=== PATIENT | female | born 1965 | race Caucasian/White ===

== ENCOUNTER 2018-09-09 00:44 | Inpatient (IN) | payer OTHER ==
[2018-09-09] MEDS ORDERED: NS 1,000 ML IV ONE ×2 (00:54→02:41)
--- NOTE | 2018-09-09 00:54 | EDPHY ---
H & P Time Seen by Provider: 09/09/18 00:54 HPI/ROS: HPI CHIEF COMPLAINT: Left-sided abdominal pain. HISTORY OF PRESENT ILLNESS: 52-year-old female, presents to the emergency room by private vehicle with family for left-sided abdominal pain. Patient's predominant pain left lower quadrant. Does have some left flank pain associated with this. Nausea but no vomiting. Denies any urinary symptoms denies chest pain or shortness of breath denies fever. The symptoms started abruptly at 8:30 p.m.. Denies any chest pain or shortness of breath. Pain is 8 /10 left lower quadrant she describes it as squeezing sensation. Of note this patient is predominantly Yakut-speaking only she was offered translator and interpreter however she declined her son translate at bedside. Past Medical History: Diabetes Past Surgical History: x4 Social History: Denies drugs alcohol tobacco. Family History: Noncontributory ROS REVIEW OF SYSTEMS: 10 Systems were reviewed and negative with the exception of the elements mentioned in the history of present illness. Exam Constitutional nontoxic no acute distress triage nursing summary reviewed, vital signs reviewed, awake/alert. Vital signs stable Eyes normal conjunctivae and sclera, EOMI, PERRLA. HENT normal inspection, atraumatic, moist mucus membranes, no epistaxis, neck supple/ no meningismus, no raccoon eyes. Respiratory clear to auscultation bilaterally, normal breath sounds, no respiratory distress, no wheezing. Cardiovascular rate normal, regular rhythm, no murmur, no edema, distal pulses normal. Gastrointestinal mild tender palpation left lower quadrant, no rebound, no guarding, normal bowel sounds, no distension, no pulsatile mass. Genitourinary no CVA tenderness. Musculoskeletal no midline vertebral tenderness, full range of motion, no calf swelling, no tenderness of extremities, no meningismus, good pulses, neurovascularly intact. Skin pink, warm, & dry, no rash, skin atraumatic. Neurologic awake, alert and oriented x 3, AAOx3, moves all 4 extremities equally, motor intact, sensory intact, CN II-XII intact, normal cerebellar, normal vision, normal speech. Psychiatric normal mood/affect. Heme/Lymph/Immune no lymphadenopathy. Differential Diagnosis: Differential diagnosis includes but is not limited to and in no particular order: Bowel obstruction, appendicitis, gallbladder disease, diverticulitis, colitis, enteritis, perforated viscus, gastritis, GERD , esophagitis, urinary tract infection, pyelonephritis, kidney stones Medical Decision Making: Plan for this patient IV establishment IV fluid bolus , IV Dilaudid 1 mg for pain control IV Zofran 4 mg for nausea, gentle IV fluids , CT scan abdomen pelvis with IV contrast to help delineate this left lower quadrant abdominal pain. Re-evaluation: 0242: Labs reviewed, patient has had vomiting x2 here in the emergency room. Patient is order 2nd L of normal saline. Additionally the patient has had 8 mg of IV Zofran. Plan for 6.25 of Phenergan for nausea control. CT scan abdomen pelvis with IV contrast results back to me by direct Radiology at 2:35 a.m., the CT scan abdomen pelvis with IV contrast shows mild wall thickening of the distal transverse descending and proximal sigmoid colon may reflect mild colitis. Additionally low density in the endometrial cavity presumably physiologic. The patient is not postmenopausal and still has menses. Given the patient's abdominal pain and CT scan findings concerning for colitis with ongoing nausea vomiting in emergency room she will be admitted to the hospital. I have ordered the patient a 2nd L fluid and Phenergan. Additionally the patient was given Dilaudid for pain control. IV Cipro and IV Flagyl order for colitis The patient is not been on any recent antibiotics. She has not had any diarrhea She is afebrile here nontoxic appearing She agrees for hospital admission. Spoke with the hospitalist service at 2:[address] Carlson, Agrees for admission. Source: Patient Constitutional: Initial Vital Signs Temperature (C) 36.8 C 09/09/18 00:56 Heart Rate 93 09/09/18 00:56 Respiratory Rate 18 09/09/18 00:56 Blood Pressure 153/79 H 09/09/18 00:56 O2 Sat (%) 95 09/09/18 00:56 O2 Delivery Mode Room Air Allergies/Adverse Reactions: No Known Allergies Allergy (Verified 09/09/18 09:40) Home Medications: Medication Instructions Recorded Amitriptyline HCl [Elavil 25 mg 25 mg PO HS 09/09/18 (RX)] Herbals/Supplements -Info Only 1 ea PO DAILY 09/09/18 Ibuprofen [Motrin (*)] 200 mg PO DAILY PRN 09/09/18 Linagliptin [Tradjenta] 5 mg PO DAILY 09/09/18 glipiZIDE XL [Glucotrol XL 10 MG 10 mg PO DAILY 09/09/18 (*)] metFORMIN HCL [Glucophage 1000 mg] 1,000 mg PO BIDMEAL 09/09/18 Medical Decision Making - Data Points Laboratory Results: Laboratory Results 09/09/18 01:00 09/09/18 01:00 Medications Given: Amitriptyline HCl (Elavil) 25 mg PO HS [facility] Stop: 03/08/19 20:59 Last Admin: 09/09/18 21:24 Dose: 25 mg Enoxaparin Sodium (Lovenox) 40 mg SC DAILY [facility] Stop: 03/08/19 08:59 Last Admin: 09/09/18 08:52 Dose: 40 mg Glipizide (Glucotrol Xl) 10 mg PO DAILY [facility] Stop: 03/08/19 13:14 Last Admin: 09/09/18 14:22 Dose: Not Given Hydromorphone HCl (Dilaudid) 0.4 mg IVP Q2HRS PRN PRN Reason: Pain, Severe Unable to Take PO Stop: 09/19/18 02:49 Last Admin: 09/09/18 21:23 Dose: 0.4 mg Sodium Chloride (Ns) 1,000 mls @ 100 mls/hr IV CONT [facility] Stop: 03/08/19 02:59 Last Admin: 09/09/18 21:24 Dose: 1,000 mls Insulin Human Lispro (Humalog Lispro) 0 unit SC Q6H [facility] PRN Reason: Protocol Stop: 03/08/19 13:14 Last Admin: 09/09/18 13:43 Dose: Not Given Ketorolac Tromethamine (Toradol) 15 mg IVP Q6HRS [facility] Stop: 09/14/18 09:44 Last Admin: 09/09/18 17:10 Dose: 15 mg Miscellaneous Medication (Linagliptin [Tradjenta]) 5 mg PO DAILY [facility] Stop: 03/08/19 13:14 Last Admin: 09/09/18 14:18 Dose: Not Given Ondansetron HCl (Zofran) 4 mg IVP Q4HRS PRN PRN Reason: Nausea/Vomiting, Can't Take PO Stop: 03/08/19 02:46 Last Admin: 09/09/18 21:24 Dose: 4 mg Oxycodone HCl (Oxycodone Ir) 5 - 10 mg PO Q4HRS PRN PRN Reason: Pain, Severe Able to Take PO Stop: 09/19/18 02:49 Last Admin: 09/09/18 18:58 Dose: 5 mg Promethazine HCl (Phenergan) 6.25 - 12.5 mg IVP Q6HRS PRN PRN Reason: Nausea/Vomiting, Use 2nd Stop: 03/08/19 02:46 Last Admin: 09/09/18 04:40 Dose: 6.25 mg Discontinued Medications Hydromorphone HCl (Dilaudid) 1 mg IVP EDNOW ONE Stop: 09/09/18 01:00 Last Admin: 09/09/18 01:04 Dose: 1 mg Hydromorphone HCl (Dilaudid) 1 mg IVP EDNOW ONE Stop: 09/09/18 02:10 Last Admin: 09/09/18 02:13 Dose: 1 mg Sodium Chloride (Ns) 1,000 mls @ 0 mls/hr IV EDNOW ONE; Wide Open PRN Reason: Protocol Stop: 09/09/18 00:55 Last Admin: 09/09/18 01:05 Dose: 1,000 mls Sodium Chloride (Ns) 1,000 mls @ 0 mls/hr IV ONCE ONE PRN Reason: Wide Open Stop: 09/09/18 02:42 Last Admin: 09/09/18 02:44 Dose: 1,000 mls Ciprofloxacin/Dextrose (Cipro 400 Mg (Premix)) 200 mls @ 200 mls/hr IV EDNOW ONE PRN Reason: Protocol Stop: 09/09/18 03:40 Last Admin: 09/09/18 03:47 Dose: 200 mls Metronidazole/Sodium Chloride (Flagyl 500 Mg (Premix)) 100 mls @ 100 mls/hr IV EDNOW ONE PRN Reason: Protocol Stop: 09/09/18 03:40 Last Admin: 09/09/18 02:48 Dose: 100 mls Ondansetron HCl (Zofran) 4 mg IVP EDNOW ONE Stop: 09/09/18 01:00 Last Admin: 09/09/18 01:04 Dose: 4 mg Ondansetron HCl (Zofran) 4 mg IVP EDNOW ONE Stop: 09/09/18 02:10 Last Admin: 09/09/18 02:13 Dose: 4 mg Promethazine HCl (Phenergan) 6.25 mg IVP ONCE ONE Stop: 09/09/18 02:42 Last Admin: 09/09/18 02:44 Dose: 6.25 mg Departure - Departure Disposition: [facility] Inpatient Acute Clinical Impression: Colitis Abdominal pain Qualifiers: Abdominal location: left lower quadrant Qualified Code(s): R10.32 - Left lower quadrant pain Condition: Good
[2018-09-09] MEDS ORDERED: HYDROmorphONE/DILAUDID 2 MG/ML INJ IVP ONE ×2 (00:59→02:09)
[2018-09-09] MEDS ORDERED: ONDANSETRON 4 MG/2 ML VIAL IVP ONE ×2 (00:59→02:09)
[2018-09-09 01:07] LABS: PLATELET COUNT 251 10^3/uL (150-400)
[2018-09-09] MEDS ORDERED: IOHEXOL 350mgI/ML (OMNIPAQUE) 150 ML BTL IV ONE (01:44)
[2018-09-09] MEDS ORDERED: PROMETHAZINE HCL 25 MG/ML INJ IVP ONE (02:41)
[2018-09-09] MEDS ORDERED: CIPROFLOXACIN 400 MG/DEXTROSE 200 ML IV ONE (02:41)
[2018-09-09] MEDS ORDERED: PROMETHAZINE HCL 25 MG/ML INJ ONE (02:42)
[2018-09-09] MEDS ORDERED: PROMETHAZINE HCL 25 MG/ML INJ IVP PRN (02:47)
[2018-09-09] MEDS ORDERED: ONDANSETRON DISINTEGRATING 4 MG TAB PO PRN (02:47)
--- NOTE | 2018-09-09 03:18 | PDGENHP ---
History and Physical - Chief Complaint Abdominal pain - History of Present Illness 52 yo F w/ DM presents with abdominal pain. The patient developed LLQ abdominal pain starting around 8 PM yesterday. She denies recent antibiotics or suspicious food intake. Several family members had viral illnesses but these were a few weeks ago. She developed vomiting as well in the ED but no diarrhea or evidence of bleeding. Her CT scan demonstrates mild colitis; lactate is normal. She continues to be in severe pain despite high doses of opiates. She is being admitted for further evaluation. Case discussed with ED physician Dr. Pratt; records reviewed and summarized above. History Information - Allergies/Home Medication List Allergies/Adverse Reactions: No Known Allergies Allergy (Unverified 09/09/18 00:55) Home Medications: Metformin HCl 09/09/18 [Last Taken Unknown] I have personally reviewed and updated: family history, medical history - Past Medical History diabetes type 2 - Surgical History Additional surgical history: - Family History Additional family history: Denies - Social History Smoking Status: Never smoked Review of Systems Review of Systems: ROS: 10pt was reviewed & negative except for what was stated in HPI & below Physical Exam Physical Exam: Temp Pulse Resp BP Pulse Ox 36.8 C 94 16 156/96 H 92 09/09/18 00:56 09/09/18 02:15 09/09/18 02:15 09/09/18 02:15 09/09/18 02:15 Constitutional: obese, uncomfortable Eyes: PERRL, EOMI Ears, Nose, Mouth, Throat: moist mucous membranes, no oral mucosal ulcers Cardiovascular: regular rate and rhythym, no murmur, rub, or gallop Respiratory: no respiratory distress, clear to auscultation Gastrointestinal: tenderness (LLQ), No guarding, No rebound, No distension Skin: warm, normal color Musculoskeletal: full muscle strength, no muscle tenderness Neurologic: AAOx3, CN II-XII Intact Psychiatric: interacting appropriately, not anxious (v) Lab Data & Imaging Review 09/09/18 01:00 09/09/18 01:00 WBC 11.66 10^3/uL (3.80-9.50) H 09/09/18 01:00 RBC 4.29 10^6/uL (4.18-5.33) 09/09/18 01:00 Hgb 12.2 g/dL (12.6-16.3) L 09/09/18 01:00 Hct 36.4 % (38.0-47.0) L 09/09/18 01:00 MCV 84.8 fL (81.5-99.8) 09/09/18 01:00 MCH 28.4 pg (27.9-34.1) 09/09/18 01:00 MCHC 33.5 g/dL (32.4-36.7) 09/09/18 01:00 RDW 13.0 % (11.5-15.2) 09/09/18 01:00 Plt Count 251 10^3/uL (150-400) 09/09/18 01:00 MPV 10.0 fL (8.7-11.7) 09/09/18 01:00 Neut % (Auto) 74.3 % (39.3-74.2) H 09/09/18 01:00 Lymph % (Auto) 18.2 % (15.0-45.0) 09/09/18 01:00 [place] % (Auto) 5.6 % (4.5-13.0) 09/09/18 01:00 Eos % (Auto) 1.2 % (0.6-7.6) 09/09/18 01:00 Baso % (Auto) 0.3 % (0.3-1.7) 09/09/18 01:00 Nucleat RBC Rel Count 0.0 % (0.0-0.2) 09/09/18 01:00 Absolute Neuts (auto) 8.67 10^3/uL (1.70-6.50) H 09/09/18 01:00 Absolute Lymphs (auto) 2.12 10^3/uL (1.00-3.00) 09/09/18 01:00 Absolute Monos (auto) 0.65 10^3/uL (0.30-0.80) 09/09/18 01:00 Absolute Eos (auto) 0.14 10^3/uL (0.03-0.40) 09/09/18 01:00 Absolute Basos (auto) 0.03 10^3/uL (0.02-0.10) 09/09/18 01:00 Absolute Nucleated RBC 0.00 10^3/uL (0-0.01) 09/09/18 01:00 Immature Gran % 0.4 % (0.0-1.1) 09/09/18 01:00 Immature Gran # 0.05 10^3/uL (0.00-0.10) 09/09/18 01:00 VBG Lactic Acid 1.8 mmol/L (0.7-2.1) 09/09/18 02:55 Sodium 134 mEq/L (135-145) L 09/09/18 01:00 Potassium 4.3 mEq/L (3.5-5.2) 09/09/18 01:00 Chloride 102 mEq/L (97-110) 09/09/18 01:00 Carbon Dioxide 22 mEq/l (22-31) 09/09/18 01:00 Anion Gap 10 mEq/L (6-14) 09/09/18 01:00 BUN 11 mg/dL (7-23) 09/09/18 01:00 Creatinine 0.6 mg/dL (0.6-1.0) 09/09/18 01:00 Estimated GFR > 60 09/09/18 01:00 Glucose 259 mg/dL (70-100) H 09/09/18 01:00 Calcium 9.3 mg/dL (8.5-10.4) 09/09/18 01:00 Total Bilirubin 0.4 mg/dL (0.1-1.4) 09/09/18 01:00 Conjugated Bilirubin 0.2 mg/dL (0.0-0.5) 09/09/18 01:00 Unconjugated Bilirubin 0.2 mg/dL (0.0-1.1) 09/09/18 01:00 AST 20 IU/L (14-46) 09/09/18 01:00 ALT 27 IU/L (9-52) 09/09/18 01:00 Alkaline Phosphatase 99 IU/L (38-126) 09/09/18 01:00 Total Protein 7.6 g/dL (6.3-8.2) 09/09/18 01:00 Albumin 4.2 g/dL (3.5-5.0) 09/09/18 01:00 Lipase 91 IU/L (23-300) 09/09/18 01:00 Beta HCG, Qual NEGATIVE 09/09/18 01:00 Urine Color YELLOW 09/09/18 01:05 Urine Appearance CLEAR 09/09/18 01:05 Urine pH 6.0 (5.0-7.5) 09/09/18 01:05 Ur Specific [place] 1.017 (1.002-1.030) 09/09/18 01:05 Urine Protein NEGATIVE (NEGATIVE) 09/09/18 01:05 Urine Ketones 1+ (NEGATIVE) H 09/09/18 01:05 Urine Blood NEGATIVE (NEGATIVE) 09/09/18 01:05 Urine Nitrate NEGATIVE (NEGATIVE) 09/09/18 01:05 Urine Bilirubin NEGATIVE (NEGATIVE) 09/09/18 01:05 Urine Urobilinogen NEGATIVE EU (0.2-1.0) 09/09/18 01:05 Ur Leukocyte Esterase NEGATIVE (NEGATIVE) 09/09/18 01:05 Urine RBC 1-3 /hpf (0-3) 09/09/18 01:05 Urine WBC 1-3 /hpf (0-3) 09/09/18 01:05 Ur Epithelial Cells TRACE /lpf (NONE-1+) 09/09/18 01:05 Urine Glucose 3+ (NEGATIVE) H 09/09/18 01:05 Imaging Review: CT A/P Prelim: Suspicious for colitis; no free air; normal appendix Assessment & Plan Assessment: 52 yo F w/ DM presents with abdominal pain. Plan: 1. LLQ pain - CT abdomen/pelvis (personally reviewed/interpreted) possibly consistent with mild colitis. Her UA is unremarkable and lactate WNL. Her abdominal exam is reassuring although she is still complaining of significant pain despite high doses of narcotics. - Admit for observation - S/p Cipro/Flagyl in ED; will observe off of further antibiotics - Pain control, anti-emetics PRN - Clear liquid diet, ADAT - GI PCR if diarrhea develops, none currently - If not improving, pelvic ultrasound may be reasonable 2. NIDDM - On metformin and one other oral agent as outpatient but does not remember the name. She is hyperglycemic on admission. - Continue oral medications pending reconciliation Diet - Clears, mIVF, ADAT Code - Full Ppx - LMWH Dispo - Admit under observation status
[2018-09-09] MEDS: NS 1,000 ML IV SCH ×2 (04:40→21:24)
[2018-09-09] MEDS: HYDROmorphONE/DILAUDID 1 MG/ML INJ IVP PRN ×5 (04:40→21:23)
[2018-09-09] MEDS: ONDANSETRON 4 MG/2 ML VIAL IVP PRN ×3 (08:51→21:24)
[2018-09-09] MEDS: ENOXAPARIN 40 MG/0.4 ML SYR SC SCH (08:52)
[2018-09-09] MEDS: KETOROLAC 15 MG/1 ML SDV IVP SCH ×3 (09:55→17:10)
[2018-09-09] MEDS ORDERED: D50W 25 GM/50 ML SYR IVP PRN (13:04)
--- NOTE | 2018-09-09 13:26 | HOSPPROG ---
Hospitalist Progress Note Assessment/Plan: LLQ pain - CT abdomen/pelvis (personally reviewed/interpreted) shows mild colitis. UA is unremarkable, lactate nl. Exam is reassuring. No fevers. Query infectious colitis with associated vomiting, ?viral. - monitor off atbx - GI PCR if she has diarrhea - Pain control, anti-emetics PRN - check pelvic us, ?adenomyosis, likely plan for outpt OUTSOLE TACKER referral NIDDM - Hold MTF with recent IV contrast - SSI for now Diet - Clears, IVF's Code - Full Ppx - LMWH Dispo - Obs Subjective: Pt continues to c/o LLQ abdominal pain. REports vomiting this am. Tolerating clears since then. No fevers/chills. No diarrhea. Objective: Vital Signs Temp Pulse Resp BP Pulse Ox 36.7 C 89 18 136/67 H 94 09/09/18 08:00 09/09/18 08:00 09/09/18 08:00 09/09/18 08:00 09/09/18 08:00 09/08/18 09/09/18 09/10/18 05:59 05:59 05:59 Intake Total 3347 Output Total 100 Balance 3247 - Physical Exam Constitutional: no apparent distress Eyes: PERRL Ears, Nose, Mouth, Throat: moist mucous membranes Cardiovascular: regular rate and rhythym Respiratory: no respiratory distress, clear to auscultation Gastrointestinal: other (soft, nd, mild TTP LLQ, no r/r/g, +BS) Skin: warm Musculoskeletal: full muscle strength Neurologic: AAOx3 Psychiatric: interacting appropriately ICD10 Worksheet Patient Problems: Problems Problem Status Onset Abdominal pain Acute Colitis Acute
--- NOTE | 2018-09-09 13:41 | ASMTCMCOM ---
CM Note CM Note Notes: Pt is a 52 yo albanian speaking F who presents with abdominal pain, colitis. Pt has [employer]. Pt's daughter is supportive. [employer] met with her this morning, informed CM that pt would not have outpatient coverage. No therapies ordered at this time. CM to follow as pt progresses. Plan: TBD Date Signed: 09/09/2018 01:41 PM Electronically Signed By:GLORIA Carpio
[2018-09-09] MEDS: INSULIN LISPRO 100 UNIT/ML SC SCH (13:43)
[2018-09-09] MEDS: oxyCODONE IR 5 MG TAB PO PRN ×2 (18:10→18:58)
[2018-09-09] MEDS: AMITRIPTYLINE HCL 25 MG TAB PO SCH (21:24)
[2018-09-10] MEDS: KETOROLAC 15 MG/1 ML SDV IVP SCH ×4 (00:35→17:30)
[2018-09-10] MEDS: INSULIN LISPRO 100 UNIT/ML SC SCH ×6 (01:05→21:53)
[2018-09-10 05:23] LABS: PLATELET COUNT 237 10^3/uL (150-400)
[2018-09-10] MEDS: NS 1,000 ML IV SCH ×2 (07:03→17:31)
--- NOTE | 2018-09-10 08:20 | HOSPPROG ---
Hospitalist Progress Note Assessment/Plan: LLQ pain - CT abdomen/pelvis showed mild colitis. UA unremarkable, lactate nl. Exam is reassuring. No fevers. Query infectious colitis with associated vomiting, ?viral. Pt still unable to tolerate po. Pelvic u/s with cysts, possibly adenomyosis. - cont to monitor off atbx - GI PCR if she has diarrhea - Pain control, anti-emetics PRN - outpt POST OFFICE MANAGER referral NIDDM - Holding MTF with recent IV contrast - SSI for now Diet - Clears as tolerated, cont IVF's until taking better po Code - Full Ppx - LMWH Dispo - Change to inpt as still unable to tolerate po, d/c when able to eat Subjective: Pt feels a little better today, less pain, but still not tolerating po. Vomited last night after trying chicken soup. No fevers. Denies vaginal discharge or diarrhea. Objective: Vital Signs Temp Pulse Resp BP Pulse Ox 37.1 C 87 16 108/61 91 L 09/10/18 07:37 09/10/18 07:37 09/10/18 07:37 09/10/18 07:37 09/10/18 07:37 Laboratory Results 09/10/18 04:53 09/09/18 09/10/18 09/11/18 05:59 05:59 05:59 Intake Total 3347 850 Output Total 100 Balance 3247 850 - Physical Exam Constitutional: no apparent distress Eyes: PERRL Ears, Nose, Mouth, Throat: moist mucous membranes Cardiovascular: regular rate and rhythym Respiratory: no respiratory distress, clear to auscultation Gastrointestinal: normoactive bowel sounds, soft, non-tender abdomen Skin: warm Musculoskeletal: full muscle strength Neurologic: AAOx3 Psychiatric: interacting appropriately ICD10 Worksheet Patient Problems: Problems Problem Status Onset Abdominal pain Acute Colitis Acute
[2018-09-10] MEDS: ENOXAPARIN 40 MG/0.4 ML SYR SC SCH (09:19)
[2018-09-10] MEDS: ACETAMINOPHEN 325 MG TAB PO PRN ×3 (10:41→21:32)
--- NOTE | 2018-09-10 13:51 | ASMTCMCOM ---
CM Note CM Note Notes: Due to no therapies ordered and patient having [employer] as insurance coverage which does not cover outpatient care, patient will likely discahrge independent. CM available if d/c needs change. Date Signed: 09/10/2018 01:50 PM Electronically Signed By:Nancy Paniagua LCSW
[2018-09-10] MEDS: AMITRIPTYLINE HCL 25 MG TAB PO SCH (21:32)
[2018-09-11] MEDS: KETOROLAC 15 MG/1 ML SDV IVP SCH ×4 (00:10→17:48)
[2018-09-11] MEDS: INSULIN LISPRO 100 UNIT/ML SC SCH ×4 (08:13→20:38)
[2018-09-11] MEDS: NS 1,000 ML IV SCH (08:13)
[2018-09-11] MEDS: ENOXAPARIN 40 MG/0.4 ML SYR SC SCH (08:15)
[2018-09-11] MEDS: ACETAMINOPHEN 325 MG TAB PO PRN (08:25)
--- NOTE | 2018-09-11 09:03 | HOSPPROG ---
Hospitalist Progress Note Assessment/Plan: LLQ pain - CT abdomen/pelvis showed mild colitis. UA unremarkable, lactate nl. Exam is reassuring. No fevers. Suspect infectious colitis with associated vomiting, ?viral. Pt still not tolerating much po. No diarrhea, so GI PCR has not been sent. Pelvic u/s with cysts, possibly adenomyosis, though doubt this is cause of acute illness. - cont to monitor off atbx - GI PCR if she has diarrhea - Pain control, anti-emetics PRN - diet as tolerated - GI consulted, may warrant colonoscopy since she is not improving with conservative management. Discussed with Dr. Griffin. NIDDM - Holding MTF with recent IV contrast - SSI for now Diet - Diet as tolerated, cont IVF's until taking better po Code - Full Ppx - LMWH Dispo - Cont inpt, d/c when able to eat Subjective: Pt continues to c/o 6/10 LLQ pain. Took some broth and sips of water without vomiting, but reports increased pain after eating. No fevers. No diarrhea. No urinary symptoms. Objective: Vital Signs Temp Pulse Resp BP Pulse Ox 36.7 C 77 16 122/82 H 95 09/11/18 07:56 09/11/18 07:56 09/10/18 23:44 09/11/18 07:56 09/11/18 07:56 Laboratory Results 09/10/18 04:53 09/10/18 09/11/18 09/12/18 05:59 05:59 05:59 Intake Total 850 800 136 Balance 850 800 136 - Physical Exam Constitutional: no apparent distress Eyes: PERRL Ears, Nose, Mouth, Throat: moist mucous membranes Cardiovascular: regular rate and rhythym Respiratory: no respiratory distress, clear to auscultation Gastrointestinal: other (soft, nd, +LLQ ttp, no r/r/g, +BS) Skin: warm Musculoskeletal: full muscle strength Neurologic: AAOx3 Psychiatric: interacting appropriately ICD10 Worksheet Patient Problems: Problems Problem Status Onset Abdominal pain Acute Colitis Acute
--- NOTE | 2018-09-11 10:47 | PDMN ---
Medical Necessity Medical necessity: Pt meets inpt criteria per MD order and MCG M-05, Abdominal Pain, Undiagnosed. 52 y/o admitted w/LLQ pain, possibly consistent w/colitis. Upgraded to inpt for persistent abd pain- receiving IV Tordol and IV Dilaudid, not tolerationg PO, still needing IV antiemetics. Anticipate>2MN for ongoing eval/management of above.
[2018-09-11] MEDS ORDERED: PEG 3350/NA SULF,BICARB,CL/KCL (GAVILYTE-G) 4000 ML BTL PO ONE ×2 (11:14→18:15)
--- NOTE | 2018-09-11 11:51 | GCON ---
[f rep st] CONSULTATION GI CONSULTATION DATE OF CONSULTATION: 09/11/2018 REQUESTING PHYSICIAN: Shannan Hernández MD REASON FOR CONSULTATION: Left lower quadrant abdominal pain with abnormal CT scan of the left colon. HISTORY OF PRESENT ILLNESS: The patient is a 52-year-old female who was admitted to the hospital yesterday with severe left lower quadrant abdominal pain that started 24 hours prior to admission. She denied any recent antibiotic use or suspicious food ingestion. There were several family members who had viral syndromes in the prior week. She denied any diarrhea or blood in the stool. She did develop nausea and vomiting. CT scan of the abdomen was performed on admission, which revealed borderline thickening of the transverse colon and the sigmoid colon consistent with colitis. There was no evidence of appendicitis, bowel obstruction, or abscess. There was nonspecific cystic abnormality of the uterus. The patient has had no bowel movement since admission but continues to have persistent left-sided abdominal pain, and therefore, I was consulted for further evaluation. HOME MEDICATIONS: Metformin. ALLERGIES: No known drug allergies. PAST MEDICAL HISTORY: Significant for type 2 diabetes mellitus. PAST SURGICAL HISTORY: Significant for . FAMILY HISTORY: Negative for GI malignancies, peptic ulcer disease, or inflammatory bowel disease. SOCIAL HISTORY: She is . She lives in [place] with her daughter. She does not smoke tobacco or drink alcohol. COMPREHENSIVE REVIEW OF SYSTEMS: Negative for 10 systems other than noted in the HPI. EXAMINATION: VITAL SIGNS: Temperature 36.7, pulse 77, regular, blood pressure 122/82, respiratory rate was 16, O2 saturation 95% on room air. GENERAL: A well-developed, well-nourished female in moderate distress lying on her right side curled up into a ball. INTEGUMENT: Clear. HEENT: Head atraumatic, normocephalic. Pupils equal, round, reactive to light. EOMs intact. Sclerae nonicteric. Mucous membranes good. Dentition fair. NECK: Supple. Trachea midline. LYMPHATICS: No cervical or axillary adenopathy palpated. PULMONARY: Lungs clear to percussion and auscultation. CARDIOVASCULAR: Regular rhythm, rate. Normal S1, S2 without murmur. Peripheral pulses strong bilaterally. No pedal edema. ABDOMEN: Mildly distended. Positive bowel sounds. No liver, spleen tip palpable. There was marked tenderness to deep palpation in the left upper and left lower quadrants without palpable mass or rebound. EXTREMITIES: Without deformity. NEURO: Patient was alert and oriented x3. There were no focal neurologic deficits. LABS: White count 11.66. White count yesterday 8.26. Hemoglobin yesterday 11.0, hematocrit 34.0, platelets 237,000. Glucose 125. Urinalysis was negative. CT scan of the abdomen as noted above. IMPRESSION: 1. Left lower quadrant abdominal pain of unclear etiology without diarrhea with thickening of the left colon noted. Rule out ischemic colitis. Rule out infectious colitis. 2. Type 2 diabetes mellitus. RECOMMENDATIONS: 1. Clear liquid diet. 2. Colyte prep. 3. Total colonoscopy tomorrow a.m. with Dr. Sofia. /[id number]/MODL MTDD
--- NOTE | 2018-09-11 15:15 | ASMTCMCOM ---
CM Note CM Note Notes: Discharge plan remains independent at this time as patient only has [employer]. CM available for consult. Date Signed: 09/11/2018 03:14 PM Electronically Signed By:Nancy Paniagua LCSW
[2018-09-11] MEDS: AMITRIPTYLINE HCL 25 MG TAB PO SCH (21:55)
[2018-09-12] MEDS: KETOROLAC 15 MG/1 ML SDV IVP SCH ×3 (00:05→12:34)
[2018-09-12] MEDS: NS 1,000 ML IV SCH ×2 (05:44→12:32)
[2018-09-12] MEDS ORDERED: LR 1,000 ML IV ONE (10:28)
--- NOTE | 2018-09-12 10:29 | PDANEPAE ---
ANE History of Present Illness Left lower abd pain ANE Past Medical History - Cardiovascular History Hx Hypertension: No Hx Arrhythmias: No - Pulmonary History Hx Asthma/Reactive Airway Disease: No Hx Oxygen in Use at Home: No Hx Sleep Apnea: No Sleep Apnea Screening Result - Last Documented: Negative - Endocrine History Hx Diabetes: Yes ANE Review of Systems Review of Systems: ANE Patient History - Allergies Allergies/Adverse Reactions: No Known Allergies Allergy (Verified 09/09/18 09:40) - Home Medications Home medications: home medication list seen and reviewed Home Medications: Amitriptyline HCl [Elavil 25 mg (RX)] 25 mg PO HS 09/09/18 [Last Taken 09/07/18] Herbals/Supplements -Info Only 1 ea PO DAILY 09/09/18 [Last Taken Unknown] Ibuprofen [Motrin (*)] 200 mg PO DAILY PRN 09/09/18 [Last Taken 09/08/18 21:00] Linagliptin [Tradjenta] 5 mg PO DAILY 09/09/18 [Last Taken 09/08/18] glipiZIDE XL [Glucotrol XL 10 MG (*)] 10 mg PO DAILY 09/09/18 [Last Taken ] metFORMIN HCL [Glucophage 1000 mg] 1,000 mg PO BIDMEAL 09/09/18 [Last Taken 09:00] - NPO status NPO Status: no food or drink >8 hours NPO Since - Liquids (Date): 09/12/18 NPO Since - Liquids (Time): 00:00 NPO Since - Solids (Date): 09/11/18 NPO Since - Solids (Time): 14:00 - Anes Hx Anes Hx: no prior problems - Smoking Hx Smoking Status: Never smoked ANE Labs/Vital Signs - Labs Result Diagrams: 09/10/18 04:53 09/09/18 01:00 - Vital Signs Blood Pressure: 115/70 Heart Rate: 80 Respiratory Rate: 14 O2 Sat (%): 94 Height: 158.5 cm Weight: 71.4 kg ANE Physical Exam - Airway Neck exam: FROM Mallampati Score: Class 2 Mouth exam: normal dental/mouth exam - Pulmonary Pulmonary: no respiratory distress - Cardiovascular Cardiovascular: regular rate and rhythym - ASA Status ASA Status: II ANE Anesthesia Plan Anesthesia Plan: MAC (with poss IV GA)
[2018-09-12] MEDS ORDERED: PROPOFOL 200 MG/20 ML VIAL ONE (10:33)
[2018-09-12] MEDS ORDERED: PROPOFOL/EMULSION 500 MG/50 ML BOTTLE IV ONE (10:33)
[2018-09-12] MEDS: INSULIN LISPRO 100 UNIT/ML SC SCH ×4 (10:53→21:36)
[2018-09-12] MEDS ORDERED: fentaNYL 100 MCG/2 ML INJ IVP PRN (10:59)
[2018-09-12] MEDS ORDERED: ONDANSETRON 4 MG/2 ML VIAL IVP PRN (10:59)
[2018-09-12] MEDS ORDERED: NALOXONE HCL 0.4 MG/ML INJ IVP PRN (10:59)
--- NOTE | 2018-09-12 11:09 | GIREPORT ---
[facility] - Endoscopy Department Patient Name: Nilo Collazo Procedure Date: 09/12/2018 10:40 AM Patient Type: Inpatient Attending MD/ ER Physician: Kain Sofia MD Procedure: Colonoscopy Indications: Abnormal CT of the GI tract, Abdominal pain Providers: Kain Sofia MD Medicines: Propofol per Anesthesia = IV general with spontaneous respirations Complications: No immediate complications. Estimated blood loss: Minimal. Description of Procedure: After obtaining informed consent, the scope was passed under direct vis ion. Throughout the procedure, the patient's blood pressure, pulse, and oxyg en saturations were monitored continuously. The Colonoscope with irrigatio n channel was introduced through the anus and advanced to the cecum, identified by the appendiceal orifice, ileocecal valve and palpation. T he colonoscopy was performed without difficulty. The patient tolerated the procedure well. The quality of the bowel preparation was excellent. Findings: The digital rectal exam was normal. A scattered area of mildly congested, erythematous, eroded and inflamed mucosa was found in the proximal descending colon, at the splenic flexu re and in the distal transverse colon. Biopsies were taken with a cold for ceps for histology. Estimated blood loss was minimal. The exam was otherwise without abnormality. Estimated Blood Loss: Estimated blood loss was minimal. Post Op Diagnosis: - Congested, erythematous, eroded and inflamed mucosa in the proximal descending colon, at the splenic flexure and in the distal transverse c olon. Biopsied. C/w Left-sided ischemic colitis. - The examination was otherwise normal. Recommendation: - Await pathology results. - My office will call with the pathology result with 5-7 days. If you h ave not heard from my office by 12-14, do not assume the pathology is [place], please call [phone] to get the pathology results. - Advance diet as tolerated. - [facility] patient to [facility]. - Thank you for allowing me to help in your patient's care. Do not hesi stubbs to call with any questions. Attending Participation: I personally performed the entire procedure. Kimberlyn Moy M.D Kain Sofia MD 09/12/2018 11:09:07 AM This report has been signed electronicallyMatthemishel Sofia MD Number of Addenda: 0 Note Initiated On: 09/12/2018 10:40 AM Total Procedure Duration Time 0 hours 13 minutes 44 seconds [email or web address]
--- NOTE | 2018-09-12 11:12 | POSTANESTH ---
Post Anesthetic Evaluation Cardiovascular Status: Similar to Pre-Op Cond Respiratory Status: Similar to Pre-op Cond. Level of Consciousness/Mental Status: Alert and Oriented, Mildly Sleepy, Arousable Pain Control: Adequate, Prn Tx Ordered Nausea/Vomiting Control: Adequate, Prn Tx Ordered Complications Possibly Related to Anesthesia: None Noted
[2018-09-12] MEDS: ENOXAPARIN 40 MG/0.4 ML SYR SC SCH (12:27)
--- NOTE | 2018-09-12 13:28 | ASMTCMCOM ---
CM Note CM Note Notes: Reviewed chart, spoke with Leeanne Moser NP regarding discharge plan of care, pt's progress. Per Leeanne, pt to have a colonoscopy today. Pt has a supportive and will likely discharge home independently when medically stable. CM will continue to follow for any potential needs. Discharge Plan: Home independently with family support Date Signed: 09/12/2018 01:27 PM Electronically Signed By:Zoila Barrera RN
--- NOTE | 2018-09-12 15:55 | HOSPPROG ---
Hospitalist Progress Note Assessment/Plan: LLQ pain - CT abdomen/pelvis showed mild colitis. UA unremarkable, lactate nl. Exam is reassuring. No fevers. C-scope today, discussed with Dr. Sofia, this showed e/o mild ischemic colitis. Her condition is improved - advance diet as tolerated, d/c in am if tolerates po NIDDM - Holding MTF with recent IV contrast - cont SSI Diet - Diet as tolerated, cont IVF's until taking better po Code - Full Ppx - LMWH Dispo - Cont inpt, d/c in am if tolerates po Subjective: Pt feels better. Denies pain today. She is tolerating clears after her colonoscopy this am. Hourly [employer] fevers. No diarrhea. Objective: Vital Signs Temp Pulse Resp BP Pulse Ox 36.9 C 93 14 128/59 H 94 09/12/18 15:42 09/12/18 15:42 09/12/18 15:42 09/12/18 15:42 09/12/18 15:42 Microbiology 09/11/18 21:48 Gastrointestinal Tract Panel (PCR) - Final Stool No Organism Detected By Pcr 09/11/18 09/12/18 09/13/18 05:59 05:59 05:59 Intake Total 500 848 500 Balance 500 848 500 - Physical Exam Constitutional: no apparent distress Eyes: PERRL Ears, Nose, Mouth, Throat: moist mucous membranes Cardiovascular: regular rate and rhythym Respiratory: no respiratory distress, clear to auscultation Gastrointestinal: normoactive bowel sounds, soft, non-tender abdomen Skin: warm Musculoskeletal: full muscle strength Neurologic: AAOx3 Psychiatric: interacting appropriately ICD10 Worksheet Patient Problems: Problems Problem Status Onset Abdominal pain Acute Colitis Acute
[2018-09-12] MEDS: AMITRIPTYLINE HCL 25 MG TAB PO SCH (21:39)
[2018-09-13 08:51] VITALS: BP 96/69
[2018-09-13] MEDS: INSULIN LISPRO 100 UNIT/ML SC SCH (09:24)
[2018-09-13] MEDS: ENOXAPARIN 40 MG/0.4 ML SYR SC SCH (10:52)
--- NOTE | 2018-09-13 22:24 | ASMTLACE ---
LACE Length of stay for Answers: 2 days current admission Acuity / Level of Answers: Yes Care: Did the patient have an inpatient admission? Comorbidities - select Answers: Diabetes (uncontrolled or all that apply controlled) # of Emergency department Answers: 1-2 visits in the last 6 months Score: 7 Date Signed: 09/13/2018 10:23 PM Electronically Signed By:Zoila Barrera RN
--- NOTE | 2018-09-13 22:28 | ASDISCHSUM ---
Discharge Information Plan Status:Home with No Needs Medically Cleared to Leave:09/12/2018 Discharge Date:09/13/2018 09:58 AM CM D/C Disposition:Home, Routine, Self-Care ADT D/C Disposition:Home, Routine, Self-Care Projected Discharge Date:09/13/2018 09:58 AM Transportation at D/C:Family Discharge Delay Reason: Follow-Up Date:09/13/2018 09:58 AM Discharge Slot:2 - 12:01 pm - 18:00 pm Final Diagnosis:LLQ abd pain, mild colitis, NIDDM Placement Information Patient Contact Information Contact Name:DALE Relationship:Daughter Address: City: [facility] Phone: [facility] Code: Email: Financial Information Financial Class:Self-Pay Primary Plan Desc:[employer] Primary Plan Number:NA Secondary Plan Desc: Secondary Plan Number: Assessment Information LACE LACE Length of stay for Answers: 2 days current admission Acuity / Level of Answers: Yes Care: Did the patient have an inpatient admission? Comorbidities - select Answers: Diabetes (uncontrolled or all that apply controlled) # of Emergency department Answers: 1-2 visits in the last 6 months Score: 7 Date Signed: 09/13/2018 10:23 PM Electronically Signed By:Zoila Barrera RN [facility] CM Progress Note CM Note CM Note Notes: Pt is a 52 yo turkish speaking F who presents with abdominal pain, colitis. Pt has [employer]. Pt's daughter is supportive. Johnathan met with her this morning, informed CM that pt would not have outpatient coverage. No therapies ordered at this time. CM to follow as pt progresses. Plan: TBD Date Signed: 09/09/2018 01:41 PM Electronically Signed By:GLORIA Carpio [facility] CM Progress Note CM Note CM Note Notes: Due to no therapies ordered and patient having [employer] as insurance coverage which does not cover outpatient care, patient will likely discahrge independent. CM available if d/c needs change. Date Signed: 09/10/2018 01:50 PM Electronically Signed By:Nancy Paniagua LCSW [facility] CM Progress Note CM Note CM Note Notes: Discharge plan remains independent at this time as patient only has [employer]. CM available for consult. Date Signed: 09/11/2018 03:14 PM Electronically Signed By:Nancy Paniagua LCSW [facility] CM Progress Note CM Note CM Note Notes: Reviewed chart, spoke with Leeanne Moser NP regarding discharge plan of care, pt's progress. Per Leeanne, pt to have a colonoscopy today. Pt has a supportive and will likely discharge home independently when medically stable. CM will continue to follow for any potential needs. Discharge Plan: Home independently with family support Date Signed: 09/12/2018 01:27 PM Electronically Signed By:Zoila Barrera RN Case Management Discharge Plan Note Case Management Discharge Discharge Order Complete? Answers: Yes Patient to Obtain Answers: Independently Medications Transportation Arranged Answers: Family/Friends Transport will Pick (Date 09/13/2018 12:00 AM & Time) EMTALA Complete Answers: No Notes: N/A Case Management Transport Answers: No Notes: N/A Form Complete Faxed Final Orders Answers: No Notes: N/A Agency/Facility Transfer Answers: No Notes: N/A Report Printed & Faxed to Receiving Agency Family Notified Answers: Yes Discharge Comments Notes: Reviewed chart, spoke with Dr. Hernández regarding discharge plan of care, pt's progress. Per Dr. Hernández, pt to discharge home independently with family support and no identified needs today. No PT/OT orders. No IM/CUNHA forms signed, not applicable. Pt to follow up as directed. CM available for any further issues or concerns. Discharge Plan: Home independently with family support Date Signed: 09/13/2018 10:26 PM Electronically Signed By:Zoila Barrera RN Intervention Information
--- NOTE | 2018-09-14 05:18 | GDS ---
[f rep st] DISCHARGE SUMMARY DISCHARGE DIAGNOSES: 1. Left lower quadrant pain, secondary to ischemic colitis. 2. Type 2 diabetes. CONSULTS: Dr. Rosalio Griffin, gastroenterology. PROCEDURES: Colonoscopy, September 12, 2018, showed congested erythematous eroded and inflamed mucosa in the proximal descending colon at the splenic flexure and in the distal transverse colon, which was biopsied. This was consistent with left-sided ischemic colitis. The biopsy results are pending, an d GI of the [facility] office will call the patient with pathology results in 5-7 days. She was instruc ananya to call their office in 12-14 days if she has not heard back on her pathology results. HISTORY: For details, please see history and physical dated September 09, 2018. In brief, Ms. Marley castillo is a 52-year-old female with history of type 2 diabetes on oral hypoglycemics, who presents to the emergency department with left lower quadrant pain. She was admitted to the hospital for further man agement. HOSPITAL COURSE: The patient was admitted to the Medical/Surgical unit. CT was consistent with a mi ld colitis. Infectious etiology was considered. A GI PCR was negative. She was treated with conser vative management, pain control, and IV fluids. However, her symptoms did not improve. She did have some intermittent vomiting with p.o. trials. Ultimately, GI consult was obtained, and she underwent colonoscopy with results as described above. With further conservative management and IV fluids, he r symptoms improved, her pain resolved. She has remained afebrile. She was able to tolerate a full diet by the time of discharge. She also underwent a pelvic ultrasound which showed some cysts in the region of her uterus and prior , and I recommended she have outpatient followup with Gynecology. DISPOSITION: Patient is discharged home in stable condition. FOLLOWUP: 1. Dr. Kain Sofia, GI of the [facility], for followup on her colon biopsy results. 2. Dr. Zainab Esparza, or Gynecology Clinic . 3. Clinic primary care. DISCHARGE MEDICATIONS: Please see [employer] completed medication list. There are no new medications on discharge. She will continue all other outpatient medications prescribed includin. Metformin 1000 mg p.o. twice daily. 2. Tradjenta 5 mg p.o. daily. 3. Amitriptyline 25 mg p.o. at bedtime. 4. I recommended that she hold her glipizide for a few more days until she is taking normal p.o. int gianluca as her blood sugars were in the low 100s without glipizide, and I would like to be sure she avoid s hypoglycemia. She can resume this once she is taking her regular diet. 5. I also recommend she discontinue ibuprofen/anti-inflammatories for now. /[id number]/MODL
== END 2018-09-13 09:58 | disposition home or self-care (01) | DRG 387 ==
LOC: F2N 04:00 → F3E 17:37 → OBSVTOIN 09-10 18:10
PROVIDERS: ADMIT Student in an Organized Health Care Education/Training Program; ATTEND Student in an Organized Health Care Education/Training Program
PROC: 0DBL8ZX Excision of Transverse Colon, Via Natural or Artificial Opening Endoscopic, Diagnostic (ICD-10-PCS; principal; 2018-09-12 10:30)
DX: K51.50 Left sided colitis without complications (principal); E11.9 Type 2 diabetes mellitus without complications; N85.8 Other specified noninflammatory disorders of uterus
CPT/HCPCS: 96365; G0378; J0744; J1170; J1650; J1815; J1885; J2405; J2550; J2704; Q9967